=== PATIENT | female | born 1975 | race Hispanic/Latino ===

== ENCOUNTER 2018-03-15 00:32 | Emergency (ER) | payer SELFPAY ==
[2018-03-15] MEDS ORDERED: Ketorolac Tromethamine 30 MG/ML VIAL ONE (01:14)
[2018-03-15] MEDS ORDERED: Metoclopramide HCl 10 MG/2 ML VIAL ONE (01:14)
[2018-03-15] MEDS ORDERED: diphenhydrAMINE 50 MG/ML VIAL IVP SCH (01:30)
== END 2018-03-15 03:38 | disposition home or self-care (01) ==
LOC: ERS 00:32
DX: R51 Headache (principal); E11.9 Type 2 diabetes mellitus without complications; E78.5 Hyperlipidemia, unspecified; G43.909 Migraine, unspecified, not intractable, without status migrainosus; Z79.84 Long term (current) use of oral hypoglycemic drugs
CPT/HCPCS: 93005; 96365; 96366; 96375; J1200; J1885; J2765